=== PATIENT | female | born 1965 | race Caucasian/White ===

== ENCOUNTER → 2021-05-22 | Outpatient (CLI) | payer OTHER ==
[~2021-05-22] MED LIST: COLLAGEN PO; DAILY VALUE1 EACH PO; FLONASE 0.05% N16 GM; LYSINE1000 MG PO; OMEPRAZOLE20 MG PO; PANTOPRAZOLE SO40 MG PO; PROBIOTIC1 EAC1 PO; VITAMIN B-12100 MCG PO; ZYRTEC10 MG PO
== END ==
LOC: HEART 5 14:41
DX: R00.2 Palpitations (principal)